=== PATIENT | female | born 1945 | race Caucasian/White ===

== ENCOUNTER → 2016-05-20 | Outpatient (CLI) | payer MEDICARE, MEDICAID ==
--- NOTE | 2016-05-20 12:01 | Diagnostic Imaging Report ---
PROCEDURE: CT abdomen and pelvis without contrast. TECHNIQUE: Multiple contiguous axial images were obtained through the abdomen and pelvis without the use of intravenous contrast. INDICATION: Recurrent urinary tract infections. COMPARISON: None. FINDINGS: Included views of the lungs are clear. CT abdomen: No renal or ureteral calculi are seen on either side. There is a small hyperdensity within the medial margins of the superior pole of the right kidney measuring approximately 1 cm in diameter. Conceivably, this could represent a hyperdense cyst, but is incompletely characterized on this exam. Otherwise, the kidneys have an unremarkable noncontrast CT appearance. There is pneumobilia. Multiple surgical axel are noted within the right upper abdominal quadrant. Patient appears to be status post previous cholecystectomy. The spleen, pancreas, and adrenal glands have an unremarkable noncontrast CT appearance. 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 Small bowel loops are nondistended. Normal appendix cannot be adequately identified, but there is no pericecal inflammation. There are a few scattered colonic diverticula, but no CT evidence of acute diverticulitis. There is subtle stranding of the mesenteric fat. A few prominent, yet subcentimeter mesenteric lymph nodes are also noted. No abnormal retroperitoneal adenopathy is seen. There is no loculated fluid collection, free fluid, or free air within the abdomen. There is diffuse calcified aortic and arterial atherosclerosis. Bony structures show no acute abnormalities. CT pelvis: Urinary bladder is unopacified and essentially decompressed. No calculi are seen within the urinary bladder. There is no loculated fluid collection, free fluid, or free air within the pelvis. No abnormal lymph nodes are seen. Bony structures show no acute abnormalities. IMPRESSION: 1. Small rounded hyperdensity involving the medial margin of the superior pole of the right kidney. Again, this could represent a hyperdense cyst, but is incompletely characterized on this exam. 2. Otherwise, unremarkable noncontrast CT exam of both kidneys and renal collecting systems. 3. Diffuse calcified aortic and arterial atherosclerosis. 4. Pneumobilia. Correlation with history of sphincterotomy is recommended. 5. Colonic diverticulosis, but no CT evidence of acute diverticulitis. Dictated by: Dictated on workstation # [id number]
== END ==
LOC: RAD 11:14
PROVIDERS: ATTEND Urology
DX: N28.9 Disorder of kidney and ureter, unspecified (principal); K57.30 Diverticulosis of large intestine without perforation or abscess without bleeding; I70.0 Atherosclerosis of aorta; Z87.440 Personal history of urinary (tract) infections
CPT/HCPCS: 74176

== ENCOUNTER → 2016-07-16 | Outpatient (CLI) | payer MEDICARE, MEDICAID ==
--- NOTE | 2016-07-16 14:15 | Diagnostic Imaging Report ---
Renal ultrasound. INDICATION: Right renal cyst. FINDINGS: The right kidney is 11.2 cm and the left kidney is 9.5 cm in length. There is no hydronephrosis or focal lesion. The urinary bladder appears unremarkable. In the upper pole of the right kidney, there is a simple appearing 2.1 cm cyst with increased through-transmission. No suspicious mass seen. IMPRESSION: 2.1 cm simple appearing right renal cyst is seen. Dictated by: Dictated on workstation # [id number]
== END ==
LOC: RAD 10:50
PROVIDERS: ATTEND Urology
DX: N28.1 Cyst of kidney, acquired (principal)
CPT/HCPCS: 76770